=== PATIENT | female | born 1950 | race Caucasian/White ===

== ENCOUNTER 2016-04-29 15:24 | Emergency (ER) | payer BC, OTHER ==
[~2016-04-29 15:24] MED LIST: ASAB PO; ATEN25 PO; LORTAB 5 PO; P125 PO; PEPTO BISMOL LIQ1 ML PO; PR25 PO; PROTONIXIV IV; VITAMIN B-121000 MC1 SL; ZANTAC150 MG PO
== END 2016-04-29 15:27 | disposition home or self-care (01) ==
LOC: ER 15:24
DX: H70.90 Unspecified mastoiditis, unspecified ear (principal); Z87.442 Personal history of urinary calculi; Z91.011 Allergy to milk products; Z79.82 Long term (current) use of aspirin
CPT/HCPCS: 99283